=== PATIENT | female | born 1995 | race Caucasian/White ===

== ENCOUNTER 2017-01-21 21:51 | Emergency (ER) | payer SELFPAY ==
[2017-01-22 00:27] LABS: Basophils % (Auto) 0.4 % (0.0-1.8); Eosinophils % (Auto) 2.1 % (0.0-4.3); Hematocrit 36.4 % (30.3-42.9); Hemoglobin 11.9 gm/dl (10.1-14.3); Mean Corpuscular HGB Conc 33 % (30-34); Mean Corpuscular Volume 75 fl (79-97); Platelet Count 293 K/mm3 (140-440); Red Blood Count 4.84 M/mm3 (3.65-5.03); Red Cell Distribution Width 16.9 % (13.2-15.2); White Blood Count 8.7 K/mm3 (4.5-11.0)
[2017-01-22 00:41] LABS: Mean Corpuscular Hemoglobin 25 pg (28-32)
[2017-01-22 01:32] LABS: Bilirubin,Urine NEG (Negative); Blood,Urine NEG (Negative); Ketones,Urine NEG (Negative); Leukocyte Esterase,Urine NEG (Negative); Mucus,Urine FEW /HPF; Nitrite,Urine NEG (Negative); Protein,Urine <15 mg/dL mg/dL (Negative); Urobilinogen,Urine < 2.0 mg/dL (<2.0); WBC,Urine < 1.0 /HPF (0.0-6.0)
[2017-01-22 02:07] VITALS: BP 110/73
[2017-01-22 02:11] LABS: Anion Gap 18 mmol/L; Blood Urea Nitrogen 11 mg/dL (7-17); Carbon Dioxide 22 mmol/L (22-30); Chloride 100.7 mmol/L (98-107); Potassium 3.9 mmol/L (3.6-5.0); Sodium 137 mmol/L (137-145)
--- NOTE | 2017-01-22 02:11 | Ultrasound Report ---
FINAL REPORT EXAM: US OB TRANSVAGINAL HISTORY: pelvic pain during ; recent demise TECHNIQUE: Routine transvaginal imaging was obtained the pelvis along with Doppler interrogation of the uterus. FINDINGS: The uterus measures 8.3 cm x 5.4 cm x 6 cm. Within the uterus is a gestational sac containing a yolk sac and embryo corresponding to a 6 week 2 day IUP. The heart rate is 121 BPM. There is no evidence of subchorionic hemorrhage. Free fluid is not seen in the pelvis. The maternal ovaries are appropriate size contour and echotexture. The right ovary measures 2.8 cm x 2.1 cm x 2.2 cm. Left ovary measures 2.4 cm x 1.6 cm x 1.6 cm. IMPRESSION: Single viable IUP at 6 weeks 2 days. heart rate is 121 BPM.
[2017-01-22 02:12] LABS: Alanine Aminotransferase 23 units/L (7-56); Albumin 4.2 g/dL (3.9-5); BUN/Creatinine Ratio 28; Calcium 9.3 mg/dL (8.4-10.2); Glucose 92 mg/dL (65-100)
[2017-01-22 02:13] LABS: Alkaline Phosphatase 73 units/L (35-129); Lipase 29 units/L (13-60)
--- NOTE | 2017-01-22 02:13 | Ultrasound Report ---
FINAL REPORT EXAM: US OB \T\lt; = 14 WEEKS FETUS HISTORY: pelvic pain during ; recent demise TECHNIQUE: Transabdominal imaging was obtained of the pelvis along with Doppler interrogation of the uterus. FINDINGS: The uterus measures 8.3 cm x 5.4 cm x 6 cm. Within the uterus is an intrauterine gestational sac containing a yolk sac and embryo corresponding to a viable 6 week 2 day IUP. The heart rate is 121 BPM. There is no evidence of subchorionic hemorrhage. Free fluid is not seen. The maternal ovaries are appropriate size contour and echotexture. The right ovary measures 2.8 cm x 2.1 cm x 2.2 cm. The left ovary measures 2.4 cm x 1.6 cm x 1.6 cm. IMPRESSION: Single viable IUP, 6 weeks 2 days.
[2017-01-22 02:17] LABS: Albumin/Globulin Ratio 1.4 %; Total Protein 7.2 g/dL (6.3-8.2)
== END 2017-01-21 23:53 | disposition left against medical advice (07) ==
LOC: EDBD → ED 21:51
DX: O26.891 Other specified pregnancy related conditions, first trimester (principal); M54.5 Low back pain; Z53.21 Procedure and treatment not carried out due to patient leaving prior to being seen by health care provider
CPT/HCPCS: 36415; 76801; 76817; 80053; 81001; 83690; 84702; 85025